=== PATIENT | male | born 1960 | race Caucasian/White ===

== ENCOUNTER → 2018-08-26 16:03 | Outpatient (CLI) | payer MEDICARE, SELFPAY ==
[2018-08-26 17:18] LABS: Amphetamine Urine VISTA NEGATIVE (<1000 ng/mL); Barbiturate Urine VISTA NEGATIVE (< 200 ng/mL); Benzodiazepine Urine VISTA NEGATIVE (< 200 ng/mL); Cocaine Urine VISTA NEGATIVE (< 300 ng/mL); Ecstacy Urine VISTA NEGATIVE (< 500 ng/mL); Methadone Urine VISTA NEGATIVE (< 300 ng/mL); PCP Urine VISTA NEGATIVE (< 25 ng/mL); THC Urine VISTA NEGATIVE (< 50 ng/mL); Vista UDS pH Range 6
--- OUTSIDE RECORDS SUMMARY | 2018-11-28 08:56 | XMS RPT_ITS ---
:1960 Author Organization OHIP Care Team Providers Name Role Phone NANETTE BUSTILLO Attending Unavailable NANETTE BUSTILLO Attending Unavailable NANETTE BUSTILLO Referring Unavailable SANDI MORALESULAM NABI Attending Unavailable SHERLY VEGA Referring Unavailable MONSERRAT SILVEIRA Attending Unavailable PROVIDER, UNKNOWN Referring Unavailable No, PCP Primary Care Unavailable Collin Carroll Attending Unavailable PROVIDER, UNKNOWN Referring Unavailable No, PCP Primary Care Unavailable Emmanuel Benedict Attending Unavailable Emmanuel Benedict Referring Unavailable Primay Care Physicia, No Primary Care Unavailable PROBLEMS PROBLEMS DATE TYPE CONDITION / CODE ATTENDING STATUS SOURCE 08/27/2018 Unknown F11.20 - Opioid Emmanuel Benedict Active [facility] dependence, Community uncomplicated / Hospital F11.20(ICD-10) Repository 05/30/2018 Active Encounter for JARRED MORALES Active [place] screening for NABI [facility] Main malignant neoplasm [place] of colon / Repository Z12.11(ICD-10) 05/27/2018 Admitting 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 [facility] Diagnosis myelopathy or System radiculopathy, Repository lumbar region / M47.816(ICD-10) 05/27/2018 Admitting Other specified MONSERRAT SILVEIRA Active [facility] Diagnosis postprocedural System states / Repository Z98.890(ICD-10) 01/27/2016 Active Arthrodesis status / CORY Active [place] Z98.1(ICD-10) [facility] [place] Repository 04/07/2015 Active Cerebral aneurysm, CORY Active [place] nonruptured / [facility] I67.1(ICD-10) [place] Repository 04/07/2015 Active Anxiety disorder, KRUPITZER, Active Small unspecified / [facility] F41.9(ICD-10) [place] Repository 03/09/2015 Active Epilepsy, KRUPITZER, Active Small unspecified, not [facility] intractable, without [place] status epilepticus / Repository G40.909(ICD-10) 03/09/2015 Active Gastro-esophageal KRUPITZER, Active Small reflux disease [facility] without esophagitis [place] / K21.9(ICD-10) Repository 03/09/2015 Active Low back pain / KRUPITZER, Active Small M54.5(ICD-10) [facility] [place] Repository 03/09/2015 Active Other chronic pain / KRUPITZER, Active Small G89.29(ICD-10) [facility] Repository PROCEDURES PROCEDURES No Procedure Records FoundRESULTS RESULTS URINE DRUG SCREEN Collected: 08/26/2018 Status: F Source: [place] (VISTA) 4:08 PM [facility] REPOSITORY Order Comment: List of Drugs Taken or Suspected? UNK TYPE CODE TESTS RESULT OUT OF RANGE REFERENCE UNITS LAB L505.0075 TO BE Normal CONFIRMED Result Comment: CONFIRMATORY TESTING FOR ALL POSITIVE URINE DRUG SCREEN RESULTS WILL ONLY BE SENT OUT UPON PHYSICIAN ORDER. VISTA Urine Drug Screen methods provide only preliminary analytical test results. A more specific alternate chemical method must be used in order to obtain a confirmed analytical result. Gas chromatography/mass spectrometery (GC/MS) is the preferred confirmatory method. Clinical consideration and professional judgement should be applied to any drug of abuse test result, particularly when preliminary positive results are used. URINE TCA TESTING MUST BE ORDERED SEPARATELY. USE TEST MNEMONIC: [facility] LAB L505.5005 VISTA UDS PH 6 Normal LAB L505.5015 <1000 ng/mL AMPHETAMINES Normal NEGATIVE LAB L505.5025 < 200 ng/mL BARBITIURATES Normal NEGATIVE LAB L505.5035 < 200 ng/mL BENZODIAZIPINE Normal NEGATIVE LAB L505.5045 < 300 ng/mL COCAINE Normal NEGATIVE LAB L505.5055 < 500 ng/mL ECSTACY Normal NEGATIVE LAB L505.5065 < 300 ng/mL METHADONE Normal NEGATIVE LAB L505.5075 < 300 High ng/mL OPIATES POSITIVE LAB L505.5085 < 25 ng/mL PCP Normal NEGATIVE LAB L505.5095 < 50 ng/mL THC Normal NEGATIVE Performed By: #### L505.5000 #### Laboratory [address] [place], [address] MISCELLANEOUS LAB Collected: 08/26/2018 Status: F Source: [place] PROCEDURE 4:08 PM [facility] REPOSITORY Order Comment: Test(s) Ordered: [id number] URINE TOX TYPE CODE TESTS RESULT OUT OF RANGE REFERENCE UNITS LAB L801.[address] [facility] LAB TEST Result Comment: TEST RESULT UNITS REF INTERVAL [id number] 6+Oxycodone-Bund . Amphetamines, Urine Negative ng/mL Gbpeso=4627 Amphetamine test includes Amphetamine and Methamphetamine. Barbiturate Negative ng/mL Blzzvh=525 Benzodiazepines Negative ng/mL Iiapww=675 Cannabinoid Negative Cutoff=20 Cocaine (Metabolite) Negative ng/mL Hacutu=080 Opiates Positive ng/mL Skbrpl=276 Opiate test includes Codeine, Morphine, Hydromorphone, Hydrocodone. Please Note: Confirmation performed by Mass Spectrometry Codeine Negative Fdqnnv=254 Morphine Negative Jpgugn=368 Hydromorphone Negative Wudpte=287 Hydrocodone Positive Hydrocodone Confirm 630 ng/mL Ofvwmt=489 Oxycodone/Oxymorphone, Urine Negative ng/mL Ygambu=066 Test includes Oxycodone and Oxymorphone TESTING PERFORMED AT [facility]. ORIGINAL REPORT ON FILE IN LAB CONTAINS ADDITIONAL TEST SITE INFORMATION. Performed By: #### L801.1541 #### Laboratory [address] [place], [address] HISTORY PHYSICAL Observed: 05/30/2018 Status: COMPLETED Source: [place] 10:49 AM [facility] REPOSITORY HNO ID: [id number] Author: Jarred Morales Service: (none) Author Type: Physician Type: HANDP Filed: 05/30/2018 11:14 AM Note Text: HISTORY AND PHYSICAL Nandini Dao, 57 year old male Current history and physical on file: No Is a new History and Physical required for today's visit? Yes Indication for procedure: Screening PROCEDURE(S) SCHEDULED FOR: Colonoscopy with or without biopsies and with or without removal of polyps or lesions, dilation (any means), treatment of bleeding (any means), based on clinical findings. BASELINE BEHAVIOR: Calm BASELINE ORIENTATION: A AND O x3 All medications and allergies reviewed: Yes Skin Assessment: Warm dry muscus membranes pink Airway/Respiratory Assessment: Airway: visualization of the uvula- Yes Mouth: opening greater than 2 fingerbreadths- Yes Neck: full range of motion- Yes Breath sounds clear/equal- Yes Cardiac Assessment: Regular rate and rhythm without murmur Abdominal Assessment: Abdomen soft, non-tender, no masses or organomegaly. Sedation Plan: MAC Additional Comments: None Jarred Morales MD CR SPINE LUMBOSACRAL 4+ Observed: 05/28/2018 Status: F Source: [employer] 9:56 AM SYSTEM REPOSITORY Patient Name: NANDINI DAO Diagnostic Radiology Exam Date/Time 05/27/2018 12:20:00 EDT Exam CR Spine Lumbosacral 4+ Views Ordering Physician MD RAOUL, MONSERRAT Accession Number [id number] CPT4 Codes 89583 () Reason For Exam other interverebral disc degeneration lumbar region Report LUMBAR SPINE: CLINICAL INDICATION: Intervertebral disc degeneration. TECHNIQUE: AP, lateral, oblique, and coned-down L5-S1. COMPARISON: None. FINDINGS: There are postsurgical changes from L2 to L5 with an intervertebral body graft from L3 to L4. There is left lateral fusion hardware with screws in the L2 and L5 vertebral bodies. No evidence of periprosthetic lucency to suggest loosening. No fracture of the hardware. There are junctional degenerative changes including intervertebral disc space narrowing and marginal endplate osteophytosis at L5-S1. Facet arthropathy at L5-S1. The sacroiliac joints are grossly intact without evidence of erosion or widening. Normal bone mineral density. IMPRESSION: 1.\X09\Postsurgical changes from L2 to L5 without evidence of fracture or loosening by radiograph. 2.\X09\Junctional degenerative changes at L5-S1 including intervertebral disc space narrowing, facet arthropathy, and marginal endplate osteophytosis. Report Dictated on Final Dictating Physician: MD GAUTAM JASON Signed Date and Time: 05/28/2018 9:59 am Signed by: MD GAUTAM JASON Transcribed Date and Time: 05/28/2018 10:00 CNCO Observed: 04/30/2018 Status: COMPLETED Source: [place] 12:00 AM [facility] REPOSITORY Letter Text Nanette Bustillo MD [facility] [address] [place] [address] Nandini Dao April 30, 2018 Nandini Dao [id number] [id number] Dear Mr. Dao, It was noted that you did not keep your scheduled appointment on 04/30/18. It is important to contact the office in advance if you are unable to keep your appointment so that it is available for other patients. Your medical care is important to us. Please call our office to reschedule an appointment. Sincerely, Nanette Bustillo MD CNCO Observed: 04/25/2018 Status: COMPLETED Source: [place] 12:00 AM [facility] REPOSITORY Letter Text COLONOSCOPY-GOLYTELY NO SOLID FOOD THE DAY BEFORE THIS EXAM Appointment Date: 05/30/18 at 10:00 AM Facility: [facility]- [address] [place] [address] Arrive At: 9:15 AM Special Instructions: N/A You must have a responsible adult to drive you home and assist you at home while you finish recovering from your sedation. Please bring only one person with you. 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 Arrive 30-45 minutes before your procedure time. Purchase at the Pharmacy: Fill prescription for Golytely and purchase 4 Dulcolax tablets. THE DAY BEFORE YOUR EXAM: 1. FOLLOW A CLEAR LIQUID DIET ALL DAY. 2. At 1:00PM, take 4 Dulcolax tablets. 3. At 5:00PM, start drinking solution. Drink a total of eight 8 oz glasses, one every 15-20 minutes. Please put the rest of the solution in the refrigerator for tomorrow morning. THE DAY OF YOUR EXAM 1. At 6:00 AM (four hours before your procedure) : drink one 8 oz glass every 15-20 minutes. Drink a total of four 8 oz glasses. Discard the remainder of the solution. 2. DO NOT DRINK ANYTHING ELSE AFTER THIS STEP IS COMPLETED. Nothing by mouth including clear liquids, food, gum and hard candy. 5 DAYS BEFORE EXAM STOP TAKING ASPIRIN OR ASPIRIN CONTAINING PRODUCTS, VITAMIN E AND IRON, BLOOD THINNERS SUCH COUMADIN, PLAVIX, AGGRENOX. DIABETICS ONLY Take only 1/2 of your daily dose of insulin or tablets the day before your exam. Do not take any more of your diabetic medications until the procedure is over and you have resumed eating again. Drink regular liquids, not diabetic and monitor your sugar throughout the day you are on clear liquids. If your sugar gets too low, drink some apple juice. It is very important that you drink all of the solution that we tell you to drink, if you do not complete the prep, your procedure may be cancelled. Any questions, please call our office at [phone] Ext [phone] or [phone]. TOXICOLOGY SCREEN,UR Collected: 03/28/2018 Status: F Source: [place] 11:00 AM [facility] REPOSITORY TYPE CODE TESTS RESULT OUT OF REFERENCE UNITS RANGE LAB UPCP2 Negative Negative Phencyclidin e, Urine Result Comment: Cutoff threshold at 25 ng/mL. LAB UBENZ2 Negative Benzodiazepines, Ur Abnormal Preliminary Alert positive. Result Comment: Cutoff threshold at 200 ng/mL. LAB UCOC2 Negative Cocaine, Negative Urine Result Comment: Cutoff threshold at 300 ng/mL. LAB UAMPH2 Negative Amphetamines, Urine Negative Result Comment: Cutoff threshold at 1000 ng/mL. LAB UTHC2 Negative Cannabinoids, Urine Negative Result Comment: Cutoff threshold at 50 ng/mL. LAB UOPI2 Negative Abnormal Preliminary Alert Opiates, Urine positive. Result Comment: Cutoff threshold at 300 ng/mL. LAB UBARB2 Negative Barbiturates, Urine Negative Result Comment: Cutoff threshold at 200 ng/mL. LAB UOXYC Negative Oxycodone, Urine Negative Result Comment: Cutoff threshold at 100 ng/mL. Comment: Immunoassay screen only. Cross reactivity with other substances can occur with immunoassay screening. Detection of any drug(s) in this urine toxicology panel is presumptive only. These tests are for med ical purposes only and should not be used for compliance monitoring, legal, or forensic use. Samples should be within normal physiological conditions (e.g. pH). This assay does not include adulteration/specimen validity testing. In clinical settings, confirmatory testing is at the practitioner's discretion [1]. If clinically indicated, confirmation by high specificity, quantitative methodology, which includes adulteration/spec imen validity testing, may be requested on the same specimen through Client Services ([phone]) if contacted within 48 hours of initial testing. [1]Substance Abuse and Mental Health Services Administration (2012). Clinical Drug Testing in Primary Care Technical Assistance Publication Series 32. Department of Health and Human Services, [place], p.10. Performed By: #### UTOX2 #### [facility] [address] [facility] [phone] #### UQNTPP #### [facility] [address] [address] QUANT PAIN PANEL, Collected: 03/28/2018 Status: F Source: [place] UR 11:00 AM [facility] REPOSITORY TYPE CODE TESTS RESULT OUT OF REFERENCE UNITS RANGE LAB UQCANN <16 ng/mL <16 Cannabinoid, Urine Result Comment: Tetrahydrocannabinol carboxylic acid (THCA) is a metabolite of tawat-1-rlxluacdyzxiktizpuuh which is the main active component of marijuana. LAB UQBNZL <24 ng/mL Benzoylecognine, Ur High 217 Result Comment: Benzoylecognine is a metabolite of cocaine. LAB UQACMR <5 ng/mL 6-Acetylmorphine, Ur <5 Result Comment: 6-GISSEL (6-monoacetylmorphine, also known as 6-acetylmorphine) is a unique metabolite of heroin. Presence of 6-GISSEL indicates use of heroin. 6-GISSEL is further metabolized to morphine and absence of 6-GISSEL does not rule out the use of heroin. LAB UQAMPH <5 ng/mL Amphetamine, High Urine 15 Result Comment: Amphetamine may arise from amphetamine containing drugs (eg. Adderall and Benzedrine) or by metabolism of methamphetamine. Clobenzorex, famprofazone, fenethylline, fenproporex, and mefenorex contain amphetamine pro-drugs which can be metabolized to amphetamine. Selegiline is metabolized to both amphetamine and methamphetamine. LAB UQMAMP <8 ng/mL Methamphetamine, Ur High 112 Result Comment: Methamphetamine may arise from methamphetamine containing drugs or metabolism. Selegiline is metabolized to both methamphetamine and amphetamine. Qhui-kfh-uxxzjjh inhalers for nasal decongestion may cause positive methamphetamine results. Methamphetamine is metabolized to amphetamine. LAB UQBUPR <20 ng/mL Buprenorphine, Ur <20 LAB UQNBUP <20 ng/mL Norbuprenorphine, Ur <20 Result Comment: Norbuprenorphine is the primary active metabolite of buprenorphine. LAB UQMTHD <16 ng/mL Methadone, Urine <16 LAB UQEDDP <6 ng/mL EDDP, Urine <6 Result Comment: EDDP is a metabolite of methadone. LAB UQTRAM <25 ng/mL Tramadol, Urine <25 LAB UQDTRM <20 ng/mL Desmethyltramadol <20 ,Ur Result Comment: Desmethyltramadol is a metabolite of tramadol. LAB UQFNTL <6 ng/mL High Fentanyl, Urine 26 Result Comment: Presence of fentanyl indicates use of a fentanyl containing drug. Fentanyl is metabolized to norfentanyl. LAB UQNFTL <6 ng/mL Norfentanyl, High Urine 72 Result Comment: Norfentanyl is a metabolite of fentanyl, and its presence indicates use of a fentanyl containing drug. LAB UQCODE <11 ng/mL Codeine, Urine <11 LAB UQMORP <10 ng/mL Morphine, Urine <10 Result Comment: Morphine is a metabolite of codeine and heroin. LAB UQDCDN <5 ng/mL Dihydrocodeine, Ur High 377 Result Comment: The presence of dihydrocodeine may arise from dihydrocodeine containing drugs or from the metabolism of hydrocodone. LAB UQHCOD <8 ng/mL Hydrocodone, High Urine 1344 Result Comment: Hydrocodone may arise from hydrocodone containing drugs or by metabolism of dihydrocodeine. Hydrocodone is also a minor metabolite of codeine, and may be detected with elevated levels of codeine. Hydrocodone is metabolized to hydromorphone and dihydrocodeine. LAB UQOXYC <5 ng/mL Oxycodone, High Urine <10 Result Comment: Disregard reference range. Reference range is <10 ng/mL LAB UQHMOR <5 ng/mL Hydromorphone, Ur High 87 Result Comment: Hydromorphone may arise from hydromorphone containing drugs or by metabolism of morphine and hydrocodone. LAB UQOXYM <5 ng/mL Oxymorphone, Urine <5 Result Comment: Oxymorphone is a metabolite of oxycodone. LAB UQCREA 46.8-314.5 mg/dL 57.6 Creatinine, Urine LAB UQPH 4.5-8.0 pH, 6.6 Urine LAB UQSPGR 1.002-1.030 Specific 1.004 [place],Ur LAB UQOXID <200 mg/L <38 Oxidants, Urine LAB SVNI01 <51 mg/L 56 High NITRITES,URINE LAB SVCH01 <50 mg/L <10 CHROMATE,URINE LAB SVSQ01 QUALITY,URINE Specimen quality results within acceptable limits. LAB UQNOTE Note This test is for Medical use only. Result Comment: This test was developed and its performance characteristics determined by [facility]'s Gume Rainey [facility] [place] ([facility]). It has not been cleared or approved by the FDA. -[facility] is regulated under CLIA as qualified to perform high-complexity testing. This test is used for clinical purposes. It should not be regarded as investigational or for research. Performed By: #### UTOX2 #### [facility] [address] [place] [address] #### UQNTPP #### [place] [address] PROGRESS Observed: 01/28/2018 Status: COMPLETED Source: [place] 2:51 PM [facility] [place] REPOSITORY HNO ID: [id number] Author: Nanette Bustillo Service: (none) Author Type: Physician Type: Progress Notes Filed: 01/28/2018 2:59 PM Note Text: Nandini Dao is a 57 year old male presenting for Recheck (Pt here for 3 month f/u) He is here for follow up Mood is doing ok Takes the klonopin as needed Does the Prozac daily No seizure activity Pain is reseaonable well control with current regimen The as needed medication which does work HISTORIES: PAST MEDICAL HISTORY Diagnosis Date - Brain aneurysm 04/07/2015 anterior communicating s/p coil 08/2014 Dr. Li - Chronic back pain - Depression - GERD (gastroesophageal reflux disease) - Seizure disorder (HCC) 03/09/2015 - Subarachnoid hemorrhage (HCC) massive subarachnoid hemorrhage that left him with coma PAST SURGICAL HISTORY Procedure Laterality Date - PAST SURGICAL HISTORY OF 2011 Lumbar fusion after fracture - PAST SURGICAL HISTORY OF september 2014 brain aneurysm cath done - PAST SURGICAL HISTORY OF 2010 Bleeding ulcer repair - PAST SURGICAL HISTORY OF 07/2015 R side thoracotomy with decortication of R lung infection FAMILY HISTORY Problem Relation Age of Onset - Cancer Father lung CA, smoker - None Mother - diabetes mellitus [Other] [OTHER] - Hypertension Social History: Social History Substance Use Topics - Smoking status: Current Every Day Smoker Packs/day: 0.50 Years: 20.00 Types: Cigarettes Start date: 03/09/1995 - Smokeless tobacco: Never Used Comment: he is smoking 1/2 ppd - Alcohol use Yes Comment: he does drink 2 x per month 2-3 beers 2-3 times per month Allergies: ALLERGIES No Known Allergies Medications: fentaNYL (DURAGESIC) 25 mcg/hr Apply 1 Patch as directed every 72 hours for 30 days.Earliest Fill Date: 12/28/17 clonazePAM (KLONOPIN) 1 mg tablet Take 1 tablet by mouth twice daily as needed for up to 30 days. HYDROcodone-Acetaminophen (NORCO) 7.5-325 mg per tablet Take 1 tablet by mouth twice daily as needed for up to 30 days.Earliest Fill Date: 12/28/17 FLUoxetine HCl (PROZAC) 40 mg capsule Take 1 capsule by mouth once daily. cyclobenzaprine (FLEXERIL) 10 mg tablet Take 1 tablet by mouth twice daily as needed. omeprazole (PRILOSEC) 20 mg capsule Take 1 capsule by mouth once daily. COMPOUNDED PRESCRIPTION Liver Detox Complex REVIEW OF SYSTEMS See HPI PHYSICAL EXAMINATION: BP 139/83 Pulse 88 Temp 36.6 ?C (97.9 ?F) (Oral) Resp 16 Ht 172.7 cm (5' 8) Wt 84.4 kg (186 lb) SpO2 93% BMI 28.28 kg/m? General Appearance: Well appearing, alert, in no acute distress, well-hydrated, well nourished.. Neck: Supple, no adenopathy; thyroid symmetric, normal size, no bruits. Lungs: Lungs clear to auscultation. No wheezing, rhonchi, rales. Heart: RRR without murmur, gallop, or rubs. No ectopy. Musculoskeletal: No joint swelling, deformity, or tenderness. Psych: Appropriate mood and affect, maintains good eye contact, answers questions appropriately. ? ASSESSMENT/PLAN: 1. Chronic bilateral low back pain without sciatica - ICD9: 724.2, 338.29, ICD10: M54.5, G89.29 (primary diagnosis) 2. S/P lumbar fusion - ICD9: V45.4, ICD10: Z98.1 Continue current medical regimen Pain is fairly well controlled Allows him to remain mobile ? ? 3. Gastroesophageal reflux disease without esophagitis - ICD9: 530.81, ICD10: K21.9 Patient does not report any reflux type symptoms Does take the Prilosec regularly} ? 4. Anxiety - ICD9: 300.00, ICD10: F41.9 Mood is doing fairly well with the Prozac and the Klonopin ? ? 5. Seizure disorder (HCC) - ICD9: 345.90, ICD10: G40.909 6. Brain aneurysm - ICD9: 437.3, ICD10: I67.1 Does have history of brain aneurysm recommend making a follow-up appointment with his neurosurgeon No seizure activity at all ? Nanette Bustillo MD Preventive health: Patient will do the fecal occult blood testing kit that he was given previously CNOV Observed: 01/28/2018 Status: COMPLETED Source: [place] 2:40 PM [facility] REPOSITORY Office Visit (FAMDNA) NANDINI DAO ([id number]) 1960 Greg Date Time Provider Department 01/28/18 2:40 PM NANETTE BUSTILLO During your visit today, we recorded the following information about you: Temperature Pulse Respiration Blood pressure 97.9 degrees 88/minute 16/minute 139/83 Weight Height 84.4 kg 1.727 m Trisha Antonio MA 01/28/2018 2:59 PM Signed FECAL OCCULT BLOOD due on 2008 Nanette Bustillo MD 01/28/2018 2:59 PM Signed Nandini Dao is a 57 year old male presenting for Recheck (Pt here for 3 month f/u) He is here for follow up Mood is doing ok Takes the klonopin as needed Does the Prozac daily No seizure activity Pain is reseaonable well control with current regimen The as needed medication which does work HISTORIES: PAST MEDICAL HISTORY Diagnosis Date - Brain aneurysm 04/07/2015 anterior communicating s/p coil 08/2014 Dr. Li - Chronic back pain - Depression - GERD (gastroesophageal reflux disease) - Seizure disorder (HCC) 03/09/2015 - Subarachnoid hemorrhage (HCC) massive subarachnoid hemorrhage that left him with coma PAST SURGICAL HISTORY Procedure Laterality Date - PAST SURGICAL HISTORY OF 2011 Lumbar fusion after fracture - PAST SURGICAL HISTORY OF september 2014 brain aneurysm cath done - PAST SURGICAL HISTORY OF 2010 Bleeding ulcer repair - PAST SURGICAL HISTORY OF 07/2015 R side thoracotomy with decortication of R lung infection FAMILY HISTORY Problem Relation Age of Onset - Cancer Father lung CA, smoker - None Mother - diabetes mellitus [Other] [OTHER] - Hypertension Social History: Social History Substance Use Topics - Smoking status: Current Every Day Smoker Packs/day: 0.50 Years: 20.00 Types: Cigarettes Start date: 03/09/1995 - Smokeless tobacco: Never Used Comment: he is smoking 1/2 ppd - Alcohol use Yes Comment: he does drink 2 x per month 2-3 beers 2-3 times per month Allergies: ALLERGIES No Known Allergies Medications: fentaNYL (DURAGESIC) 25 mcg/hr Apply 1 Patch as directed every 72 hours for 30 days.Earliest Fill Date: 12/28/17 clonazePAM (KLONOPIN) 1 mg tablet Take 1 tablet by mouth twice daily as needed for up to 30 days. HYDROcodone-Acetaminophen (NORCO) 7.5-325 mg per tablet Take 1 tablet by mouth twice daily as needed for up to 30 days.Earliest Fill Date: 12/28/17 FLUoxetine HCl (PROZAC) 40 mg capsule Take 1 capsule by mouth once daily. cyclobenzaprine (FLEXERIL) 10 mg tablet Take 1 tablet by mouth twice daily as needed. omeprazole (PRILOSEC) 20 mg capsule Take 1 capsule by mouth once daily. COMPOUNDED PRESCRIPTION Liver Detox Complex REVIEW OF SYSTEMS See HPI PHYSICAL EXAMINATION: BP 139/83 Pulse 88 Temp 36.6 ?C (97.9 ?F) (Oral) Resp 16 Ht 172.7 cm (5' 8) Wt 84.4 kg (186 lb) SpO2 93% BMI 28.28 kg/m? General Appearance: Well appearing, alert, in no acute distress, well-hydrated, well nourished.. Neck: Supple, no adenopathy; thyroid symmetric, normal size, no bruits. Lungs: Lungs clear to auscultation. No wheezing, rhonchi, rales. Heart: RRR without murmur, gallop, or rubs. No ectopy. Musculoskeletal: No joint swelling, deformity, or tenderness. Psych: Appropriate mood and affect, maintains good eye contact, answers questions appropriately. ? ASSESSMENT/PLAN: 1. Chronic bilateral low back pain without sciatica - ICD9: 724.2, 338.29, ICD10: M54.5, G89.29 (primary diagnosis) 2. S/P lumbar fusion - ICD9: V45.4, ICD10: Z98.1 Continue current medical regimen Pain is fairly well controlled Allows him to remain mobile ? ? 3. Gastroesophageal reflux disease without esophagitis - ICD9: 530.81, ICD10: K21.9 Patient does not report any reflux type symptoms Does take the Prilosec regularly} ? 4. Anxiety - ICD9: 300.00, ICD10: F41.9 Mood is doing fairly well with the Prozac and the Klonopin ? ? 5. Seizure disorder (HCC) - ICD9: 345.90, ICD10: G40.909 6. Brain aneurysm - ICD9: 437.3, ICD10: I67.1 Does have history of brain aneurysm recommend making a follow- up appointment with his neurosurgeon No seizure activity at all ? Nanette Bustillo MD Preventive health: Patient will do the fecal occult blood testing kit that he was given previously Nanette Bustillo MD 01/28/2018 2:55 PM Signed Contin current medications Call for refills when needed Follow up in 3 months Do the stool test at home Referring Provider: ANNETTE BUSTILLO [[id number]] Allergies As of Date: 01/28/2018 (No Known Allergies) Date Reviewed: 01/28/2018 Reviewed by: Trisha Antonio - Fully Assessed Reason for Visit: Recheck [92] Cmt: Pt here for 3 month f/u Visit Diagnoses:Chronic low back pain with right-sided sciatica, unspecified back pain laterality [M54.41, G89.29] S/P lumbar fusion [Z98.1] Anxiety [F41.9] Gastroesophageal reflux disease without esophagitis [K21.9] Seizure disorder (HCC) [G40.909] Order(s):fentaNYL (DURAGESIC) 25 mcg/hrApply 1 Patch as directed every 72 hours for 30 days.Disp: 10 PatchRfl: 0 clonazePAM (KLONOPIN) 1 mg tabletTake 1 tablet by mouth twice daily as needed for up to 30 days.Disp: 60 tabletRfl: 0 HYDROcodone-Acetaminophen (NORCO) 7.5-325 mg per tabletTake 1 tablet by mouth twice daily as needed for up to 30 days.Disp: 60 tabletRfl: 0 cyclobenzaprine (FLEXERIL) 10 mg tabletTake 1 tablet by mouth twice daily as needed.Disp: 60 tabletRfl: 5 Prescriptions as of 01/28/2018 Sig: FENTANYL 25 MCG/HR TRANSDERMA* Apply 1 Patch as directed ileana* CLONAZEPAM 1 MG TABLET Take 1 tablet by mouth twice * HYDROCODONE 7.5 MG-ACETAMINOP* Take 1 tablet by mouth twice * CYCLOBENZAPRINE 10 MG TABLET Take 1 tablet by mouth twice * FLUOXETINE 40 MG CAPSULE Take 1 capsule by mouth once * OMEPRAZOLE 20 MG CAPSULE,LILIBETH* Take 1 capsule by mouth once * COMPOUNDED PRESCRIPTION Liver Detox Complex Problem List As Of Date 01/28/2018 Noted Resolved Chronic back pain [M54.9, G89.29] GERD (gastroesophageal reflux disease) [K21.9] Seizure disorder (HCC) [G40.909] INVALID FOR* Anxiety [F41.9] INVALID FOR* Brain aneurysm [I67.1] INVALID FOR* Hepatitis C virus infection without hepatic com*INVALID FOR* S/P lumbar fusion [Z98.1] INVALID FOR* Chronic narcotic use [F11.90] INVALID FOR* Chronically on benzodiazepine therapy [Z79.899] INVALID FOR* Other instructions from your clinician: Contin current medications Call for refills when needed Follow up in 3 months Do the stool test at home Prescriptions ordered this encounter Disp Refills Start End FENTANYL 25 MCG/HR TRANSDERMAL PATCH 10 P* 0 01/28/2018 02/27/2018 Class: Print RX Route: TRANSDERM. Sig: Apply 1 Patch as directed every 72 hours for 30 days. CLONAZEPAM 1 MG TABLET 60 t* 0 01/28/2018 02/27/2018 Class: Print RX Route: ORAL Sig: Take 1 tablet by mouth twice daily as needed for up to 30 days. HYDROCODONE 7.5 MG-ACETAMINOPHEN 325* 60 t* 0 01/28/2018 02/27/2018 Class: Print RX Route: ORAL Sig: Take 1 tablet by mouth twice daily as needed for up to 30 days. CYCLOBENZAPRINE 10 MG TABLET 60 t* 5 01/28/2018 Route: ORAL Sig: Take 1 tablet by mouth twice daily as needed. Medications Discontinued During This Encounter fentaNYL (DURAGESIC) 25 mcg/hr 10 P* 0 12/28/2017 01/28/2018 Class: Print RX Route: TRANSDERMAL Sig: Apply 1 Patch as directed every 72 hours for 30 days. Earliest Fill Date: 12/28/17 Disc: Reason for discontinue is not on file. clonazePAM (KLONOPIN) 1 mg tablet 60 t* 0 12/28/2017 01/28/2018 Class: Print RX Route: ORAL Sig: Take 1 tablet by mouth twice daily as needed for up to 30 days. Disc: Reason for discontinue is not on file. HYDROcodone-Acetaminophen (NORCO) 7.* 60 t* 0 12/28/2017 01/28/2018 Class: Print RX Route: ORAL Sig: Take 1 tablet by mouth twice daily as needed for up to 30 days. Earliest Fill Date: 12/28/17 Disc: Reason for discontinue is not on file. cyclobenzaprine (FLEXERIL) 10 mg tab* 60 t* 5 07/31/2017 01/28/2018 Route: ORAL Sig: Take 1 tablet by mouth twice daily as needed. Disc: Reason for discontinue is not on file. Disposition: Return in about 3 months (around 04/30/2018). Follow-up and Disposition History Recorded Encounter Status:Closed by NANETTE BUSTILLO MD on 01/28/18 PROGRESS Observed: 01/28/2018 Status: COMPLETED Source: [place] 2:33 PM [facility] [place] REPOSITORY HNO ID: [id number] Author: Trisha Antonio Service: (none) Author Type: (none) Type: Progress Notes Filed: 01/28/2018 2:59 PM Note Text: FECAL OCCULT BLOOD due on 2008 TOXICOLOGY SCREEN,UR Collected: 11/27/2017 Status: F Source: [place] 3:03 PM [facility] REPOSITORY TYPE CODE TESTS RESULT OUT OF REFERENCE UNITS RANGE LAB UPCP2 Negative Negative Phencyclidin e, Urine Result Comment: Cutoff threshold at 25 ng/mL. LAB UBENZ2 Negative Benzodiazepines, Ur Abnormal Preliminary Alert positive. Result Comment: Cutoff threshold at 200 ng/mL. LAB UCOC2 Negative Cocaine, Negative Urine Result Comment: Cutoff threshold at 300 ng/mL. LAB UAMPH2 Negative Amphetamines, Urine Negative Result Comment: Cutoff threshold at 1000 ng/mL. LAB UTHC2 Negative Cannabinoids, Urine Negative Result Comment: Cutoff threshold at 50 ng/mL. LAB UOPI2 Negative Abnormal Preliminary Alert Opiates, Urine positive. Result Comment: Cutoff threshold at 300 ng/mL. LAB UBARB2 Negative Barbiturates, Urine Negative Result Comment: Cutoff threshold at 200 ng/mL. LAB UETOH <11 mg/dL <11 Ethanol, Urine LAB UOXYC Negative Oxycodone, Negative Urine Result Comment: Cutoff threshold at 100 ng/mL. Comment: Immunoassay screen only. Cross reactivity with other substances can occur with immunoassay screening. Detection of any drug(s) in this urine toxicology panel is presumptive only. These tests are for med ical purposes only and should not be used for compliance monitoring, legal, or forensic use. In clinical settings, confirmatory testing is at the practitioner's discretion [1]. If clinically indicated, confirmation by high specificity, quantitative methodology may be requested on the same speci men through Client Services ([phone]) if contacted within 48 hours of initial testing. [1]Substance Abuse and Mental Health Services Administration (2012). Clinical Drug Testing in Primary Care Technical Assistance Publication Series 32. Department of Health and Human Services, [place], p.10. These tests were developed and their performance characteristics determined by [facility]'s [facility] [place] ([facility]). They have not been cleared or a pproved by the FDA. [facility] is regulated under CLIA as qualified to perform high complexity testing. These tests are used for clinical purposes. They should not be regarded as investigational or for research. Performed By: #### UTOX2, UQNTPP #### [facility] [address] [place] [id number] QUANT PAIN PANEL, Collected: 11/27/2017 Status: F Source: [place] UR 3:03 PM [facility] REPOSITORY TYPE CODE TESTS RESULT OUT OF REFERENCE UNITS RANGE LAB UQCANN <16 ng/mL <16 Cannabinoid, Urine Result Comment: Tetrahydrocannabinol carboxylic acid (THCA) is a metabolite of oziqo-9-cwypyibuttznnvmneyee which is the main active component of marijuana. LAB UQBNZL <24 ng/mL Benzoylecognine, Ur High 25 Result Comment: Benzoylecognine is a metabolite of cocaine. LAB UQACMR <5 ng/mL 6-Acetylmorphine, Ur <5 Result Comment: 6-GISSEL (6-monoacetylmorphine, also known as 6-acetylmorphine) is a unique metabolite of heroin. Presence of 6-GISSEL indicates use of heroin. 6-GISSEL is further metabolized to morphine and absence of 6-GISSEL does not rule out the use of heroin. LAB UQAMPH <5 ng/mL Amphetamine, Urine <5 LAB UQMAMP <8 ng/mL Methamphetamine, Ur <8 LAB UQBUPR <20 ng/mL Buprenorphine, Ur <20 LAB UQNBUP <20 ng/mL Norbuprenorphine, Ur <20 Result Comment: Norbuprenorphine is the primary active metabolite of buprenorphine. LAB UQMTHD <16 ng/mL Methadone, Urine <16 LAB UQEDDP <6 ng/mL EDDP, Urine <6 Result Comment: EDDP is a metabolite of methadone. LAB UQTRAM <25 ng/mL Tramadol, Urine <25 LAB UQDTRM <20 ng/mL Desmethyltramadol <20 ,Ur Result Comment: Desmethyltramadol is a metabolite of tramadol. LAB UQFNTL <6 ng/mL High Fentanyl, Urine 16 Result Comment: Presence of fentanyl indicates use of a fentanyl containing drug. Fentanyl is metabolized to norfentanyl. LAB UQNFTL <6 ng/mL Norfentanyl, High Urine 42 Result Comment: Norfentanyl is a metabolite of fentanyl, and its presence indicates use of a fentanyl containing drug. LAB UQCODE <11 ng/mL Codeine, Urine <11 LAB UQMORP <10 ng/mL Morphine, Urine <10 Result Comment: Morphine is a metabolite of codeine and heroin. LAB UQDCDN <5 ng/mL Dihydrocodeine, Ur High 209 Result Comment: The presence of dihydrocodeine may arise from dihydrocodeine containing drugs or from the metabolism of hydrocodone. LAB UQHCOD <8 ng/mL Hydrocodone, High Urine 546 Result Comment: Hydrocodone may arise from hydrocodone containing drugs or by metabolism of dihydrocodeine. Hydrocodone is also a minor metabolite of codeine, and may be detected with elevated levels of codeine. Hydrocodone is metabolized to hydromorphone and dihydrocodeine. LAB UQOXYC <5 ng/mL Oxycodone, Urine <5 LAB UQHMOR <5 ng/mL Hydromorphone, High Ur 46 Result Comment: Hydromorphone may arise from hydromorphone containing drugs or by metabolism of morphine and hydrocodone. LAB UQOXYM <5 ng/mL Oxymorphone, Urine <5 Result Comment: Oxymorphone is a metabolite of oxycodone. LAB UQCREA >19 mg/dL Creatinine, 20-50 Urine LAB UQPH 4-10 pH, Urine 4-10 LAB UQSPGR 1.005-1.020 Specific <1.003 Spencer,Ur LAB UQOXID Negative Oxidants, Negative Urine LAB UQSPQ Specimen Specimen Quality quality results within acceptable limits. LAB UQNOTE Note This test is for Medical use only. Result Comment: This test was developed and its performance characteristics determined by [facility]'s [facility] [place] ([facility]). It has not been cleared or approved by the FDA. -[facility] is regulated under CLIA as qualified to perform high-complexity testing. This test is used for clinical purposes. It should not be regarded as investigational or for research. 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 Per Dr. Bustillo a Urine is needed to be collected before giving scripts for tox screen and pain panel. Refer to 11/19/17 encounter. Pt states he is unable to give urine sample because he just went and that his mother was in the car and he is unable to wait. Informed pt that he is not able to be given scripts until a urine is collected. Pt refused to give urine and left the office. All 3 printed scripts were destroyed and witnessed by AUSTYN Gutierrez. Please inform Dr. Bustillo if pt comes back to office for these scripts. Consuelo Saravia Ma 11/27/2017 10:13 AM Signed Pt came into office yesterday 11-26-17 for scripts. Pt was brought back for urine specimen. Pt was in bathroom for 20 minutes with no results. Pt then left with specimen cup [facility], and came back with a urine sample. Explained to that that we could not except that sample. Pt verbalized understanding and left. Pt presents today to give urine sample. Consuelo Saravia Ma 11/27/2017 10:27 AM Signed Pt was successful at giving urine sample. Please review and advise about scripts. Nanette Bustillo MD 11/27/2017 10:40 AM Signed Prescription were printed off Patient states he did take his medication today and currently has on a fentanyl patch Will see what the results of the urine drug screen shows Scripts were given to patient TRK Nanette Bustillo MD 11/27/2017 10:40 AM Signed Addended by: NANETTE BUSTILLO MD on: 11/27/2017 10:40 AM Modules accepted: Orders Allergies As of Date: 11/20/2017 (No Known Allergies) Date Reviewed: 10/30/2017 Reviewed by: Annia Pathak MA - Fully Assessed Reason for Visit: Urine Needed [Other] Cmt: printed scripts Visit Diagnoses:Chronic low back pain with right-sided sciatica, unspecified back pain laterality [M54.41, G89.29] S/P lumbar fusion [Z98.1] Anxiety [F41.9] Order(s):fentaNYL (DURAGESIC) 25 mcg/hrApply 1 Patch as directed every 72 hours for 30 days.Disp: 10 PatchRfl: 0 HYDROcodone-Acetaminophen (NORCO) 7.5-325 mg per tabletTake 1 tablet by mouth twice daily as needed for up to 30 days.Disp: 60 tabletRfl: 0 clonazePAM (KLONOPIN) 1 mg tabletTake 1 tablet by mouth twice daily as needed for up to 30 days.Disp: 60 tabletRfl: 0 Prescriptions as of 11/20/2017 Sig: FENTANYL 25 MCG/HR TRANSDERMA* Apply 1 Patch as directed ileana* HYDROCODONE 7.5 MG-ACETAMINOP* Take 1 tablet by mouth twice * CLONAZEPAM 1 MG TABLET Take 1 tablet by mouth twice * FLUOXETINE 40 MG CAPSULE Take 1 capsule by mouth once * CYCLOBENZAPRINE 10 MG TABLET Take 1 tablet by mouth twice * OMEPRAZOLE 20 MG CAPSULE,LILIBETH* Take 1 capsule by mouth once * COMPOUNDED PRESCRIPTION Liver Detox Complex Problem List As Of Date 11/20/2017 Noted Resolved Chronic back pain [M54.9, G89.29] GERD (gastroesophageal reflux disease) [K21.9] Seizure disorder (HCC) [G40.909] INVALID FOR* Anxiety [F41.9] INVALID FOR* Brain aneurysm [I67.1] INVALID FOR* Hepatitis C virus infection without hepatic com*INVALID FOR* S/P lumbar fusion [Z98.1] INVALID FOR* Chronic narcotic use [F11.90] INVALID FOR* Chronically on benzodiazepine therapy [Z79.899] INVALID FOR* Prescriptions ordered this encounter Disp Refills Start End FENTANYL 25 MCG/HR TRANSDERMAL PATCH 10 P* 0 11/27/2017 12/27/2017 Class: Print RX Route: TRANSDERM. Sig: Apply 1 Patch as directed every 72 hours for 30 days. HYDROCODONE 7.5 MG-ACETAMINOPHEN 325* 60 t* 0 11/27/2017 12/27/2017 Class: Print RX Route: ORAL Sig: Take 1 tablet by mouth twice daily as needed for up to 30 days. CLONAZEPAM 1 MG TABLET 60 t* 0 11/27/2017 12/27/2017 Class: Print RX Route: ORAL Sig: Take 1 tablet by mouth twice daily as needed for up to 30 days. Medications Discontinued During This Encounter fentaNYL (DURAGESIC) 25 mcg/hr 10 P* 0 11/19/2017 11/27/2017 Class: Print RX Route: TRANSDERMAL Sig: Apply 1 Patch as directed every 72 hours for 30 days. Earliest Fill Date: 11/19/17 Disc: Reason for discontinue is not on file. HYDROcodone-Acetaminophen (NORCO) 7.* 60 t* 0 11/19/2017 11/27/2017 Class: Print RX Route: ORAL Sig: Take 1 tablet by mouth twice daily as needed for up to 30 days. Earliest Fill Date: 11/19/17 Disc: Reason for discontinue is not on file. clonazePAM (KLONOPIN) 1 mg tablet 60 t* 0 11/19/2017 11/27/2017 Class: Print RX Route: ORAL Sig: Take 1 tablet by mouth twice daily as needed for up to 30 days. Disc: Reason for discontinue is not on file. Encounter Status:Closed by GIOVANNI WHITTINGTON on 11/20/17 PROGRESS Observed: 10/30/2017 Status: COMPLETED Source: [place] 2:03 PM [facility] [place] REPOSITORY O ID: [id number] Author: Nanette Bustillo Service: (none) Author Type: Physician Type: Progress Notes Filed: 10/30/2017 2:54 PM Note Text: Nandini Dao is a 57 year old male presenting for Established Patient (3 month FOLLOW-UP) He is here for follow up He has been doing about the same No acute issues Pain is about the same Anxiety is about the same as well prozac seems to be doing ok No issues HISTORIES: PAST MEDICAL HISTORY Diagnosis Date - Brain aneurysm 04/07/2015 anterior communicating s/p coil 08/2014 Dr. Li - Chronic back pain - Depression - GERD (gastroesophageal reflux disease) - Seizure disorder (HCC) 03/09/2015 - Subarachnoid hemorrhage (HCC) massive subarachnoid hemorrhage that left him with coma PAST SURGICAL HISTORY Procedure Laterality Date - PAST SURGICAL HISTORY OF 2011 Lumbar fusion after fracture - PAST SURGICAL HISTORY OF september 2014 brain aneurysm cath done - PAST SURGICAL HISTORY OF 2010 Bleeding ulcer repair - PAST SURGICAL HISTORY OF 07/2015 R side thoracotomy with decortication of R lung infection FAMILY HISTORY Problem Relation Age of Onset - Cancer Father lung CA, smoker - None Mother - diabetes mellitus [Other] [OTHER] - Hypertension Social History: Social History Substance Use Topics - Smoking status: Current Every Day Smoker Packs/day: 0.50 Years: 20.00 Types: Cigarettes Start date: 03/09/1995 - Smokeless tobacco: Never Used Comment: he is smoking 1/2 ppd - Alcohol use Yes Comment: he does drink 2 x per month 2-3 beers 2-3 times per month Allergies: ALLERGIES No Known Allergies Medications: HYDROcodone-Acetaminophen (NORCO) 7.5-325 mg per tablet Take 1 tablet by mouth twice daily as needed for up to 30 days.Earliest Fill Date: 10/26/17 fentaNYL (DURAGESIC) 25 mcg/hr Apply 1 Patch as directed every 72 hours for 30 days.Earliest Fill Date: 10/26/17 clonazePAM (KLONOPIN) 1 mg tablet Take 1 tablet by mouth twice daily as needed for up to 30 days. FLUoxetine HCl (PROZAC) 40 mg capsule Take 1 capsule by mouth once daily. cyclobenzaprine (FLEXERIL) 10 mg tablet Take 1 tablet by mouth twice daily as needed. omeprazole (PRILOSEC) 20 mg capsule Take 1 capsule by mouth once daily. COMPOUNDED PRESCRIPTION Liver Detox Complex REVIEW OF SYSTEMS See HPI PHYSICAL EXAMINATION: BP 130/82 Pulse 109 Temp 36.7 ?C (98.1 ?F) (Oral) Resp 16 Wt 80.1 kg (176 lb 8 oz) SpO2 96% BMI 26.84 kg/m2 General Appearance: Well appearing, alert, in no acute distress, well-hydrated, well nourished.. Lungs: Lungs clear to auscultation. No wheezing, rhonchi, rales. Heart: RRR without murmur, gallop, or rubs. ?No ectopy. Extremities: No deformities, edema, skin discoloration, clubbing or cyanosis. Good capillary refill. . Peripheral Pulses: Normal. Psych: ?Appropriate mood and affect ASSESSMENT/PLAN: 1. Chronic bilateral low back pain without sciatica - ICD9: 724.2, 338.29, ICD10: M54.5, G89.29 (primary diagnosis) 2. S/P lumbar fusion - ICD9: V45.4, ICD10: Z98.1 Continue current medical regimen Pain is fairly well controlled Allows him to remain mobile 3. Gastroesophageal reflux disease without esophagitis - ICD9: 530.81, ICD10: K21.9 Patient does not report any reflux type symptoms Does take the Prilosec regularly} 4. Anxiety - ICD9: 300.00, ICD10: F41.9 Mood is doing fairly well with the Prozac and the Klonopin 5. Seizure disorder (HCC) - ICD9: 345.90, ICD10: G40.909 6. Brain aneurysm - ICD9: 437.3, ICD10: I67.1 Does have history of brain aneurysm recommend making a follow-up appointment with his neurosurgeon No seizure activity at all Nanette Bustillo MD Preventive health: Patient has yet to do the fecal occult blood test and he will be given another kit today Recommend doing this as soon as possible I also did review his tox screen as well as urine drug screen Was positive for metabolites of cocaine as well as methamphetamine Was negative for the fentanyl Counseled that we will need to test him regularly and if he has any other discrepancies, I will not longer be able to prescribe controlled medications for him Patient denied any illicit drug use 10/02/2017 12:03 PM - Interface, Results In Component Results Component Value Range AND Units Status Performing Lab Cannabinoid Quant, Urine <16 <16 ng/mL Final CCM Comment: Tetrahydrocannabinol carboxylic acid (THCA) is a metabolite of yrbim-4-knkqqonfaorzkoqmiiyt which is the main active component of marijuana. Benzoylecognine Quant, Urine 166 (H) <24 ng/mL Final CCM Comment: Benzoylecognine is a metabolite of cocaine. 6-Acetylmorphine Quant, Urine <5 <5 ng/mL Final CCM Comment: 6-GISSEL (6-monoacetylmorphine, also known as 6-acetylmorphine) is a unique metabolite of heroin. Presence of 6-GISSEL indicates use of heroin. 6-GISSEL is further metabolized to morphine and absence of 6-GISSEL does not rule out the use ?of heroin. Amphetamine Quant, Urine <5 <5 ng/mL Final CCM Methamphetamine Quant, Urine 27 (H) <8 ng/mL Final CCM Comment: Methamphetamine may arise from methamphetamine containing drugs or metabolism. ?Selegiline is metabolized to both methamphetamine and amphetamine. Rqml-kdc-vddkxpc inhalers for nasal decongestion may cause positive methamphetamine results. Methamphetamine is metabolized to amphetamine. Buprenorphine Quant, Urine <20 <20 ng/mL Final CCM Norbuprenorphine Quant, Urine <20 <20 ng/mL Final CCM Comment: Norbuprenorphine is the primary active metabolite of buprenorphine. Methadone Quant, Urine <16 <16 ng/mL Final CCM EDDP Quant, Urine <6 <6 ng/mL Final CCM Comment: EDDP is a metabolite of methadone. Tramadol Quant, Urine <25 <25 ng/mL Final CCM Desmethyltramadol Quant, Urine <20 <20 ng/mL Final CCM Comment: Desmethyltramadol is a metabolite of tramadol. Fentanyl Quant, Urine <6 <6 ng/mL Final CCM Norfentanyl Quant, Urine 11 (H) <6 ng/mL Final CCM Comment: Norfentanyl is a metabolite of fentanyl, and its presence indicates use of a fentanyl containing drug. Codeine Quant, Urine <11 <11 ng/mL Final CCM Morphine Quant, Urine <10 <10 ng/mL Final CCM Comment: Morphine is a metabolite of codeine and heroin. Dihydrocodeine Quant, Urine 335 (H) <5 ng/mL Final CCM Comment: The presence of dihydrocodeine may arise from dihydrocodeine containing drugs or from the metabolism of hydrocodone. ? Hydrocodone Quant, Urine 1606 (H) <8 ng/mL Final CCM Comment: Hydrocodone may arise from hydrocodone containing drugs or by metabolism of dihydrocodeine. Hydrocodone is also a minor metabolite of codeine, and may be detected with elevated levels of codeine. Hydrocodone is metabolized to hydromorphone and dihydrocodeine. Oxycodone Quant, Urine <5 <5 ng/mL Final CCM Hydromorphone Quant, Urine 65 (H) <5 ng/mL Final CCM Comment: Hydromorphone may arise from hydromorphone containing drugs or by metabolism of morphine and hydrocodone. ? Oxymorphone Quant, Urine <5 <5 ng/mL Final CCM Comment: Oxymorphone is a metabolite of oxycodone. Creatinine,Ur Pain Umana >50 >19 mg/dL Final CCM Urine pH, Pain Umana 4-10 4 - 10 Final CCM Specific Spencer,Ur Pain Umana 1.005-1.020 1.005 - 1.020 Final CCM Oxidants,Ur Negative Negative Final CCM Specimen Quality, Ur Pain Umana Final CCM Specimen quality results within acceptable limits. Note,Ur Pain Umana Final CCM This test is for Medical use only. Comment: This test was developed and its performance characteristics determined by [facility]'s [facility] [place] ([facility] It has not been cleared or approved by the FDA. -[facility] is regulated under CLIA as qualified to perform high-complexity testing. This test is used for clinical purposes. It should not be regarded as investigational or for research. 09/27/2017 ?4:48 PM - Interface, Results In Component Results Component Value Range AND Units Status Performing Lab Phencyclidine Negative Negative Final MED LAB Comment: Cutoff threshold at 25 ng/mL. Detection of any drug(s) is presumptive only. For confirmation by alternative methods contact the Laboratory within 5 days. For medical purposes only. Documented cross-reactivities (false positives) on file in Laboratory. Benzodiazepines Urine Positive (A) Negative Final MED LAB Comment: Cutoff threshold at 200 ng/mL. Detection of any drug(s) is presumptive only. For confirmation by alternative methods contact the Laboratory within 5 days. For medical purposes only. Documented cross-reactivities (false positives) on file in Laboratory. Cocaine Urine Negative Negative Final MED LAB Comment: Cutoff threshold at 300 ng/mL. Detection of any drug(s) is presumptive only. For confirmation by alternative methods contact the Laboratory within 5 days. For medical purposes only. Documented cross-reactivities (false positives) on file in Laboratory. Amphetamines Negative Negative Final MED LAB Comment: Cutoff threshold at 1000 ng/mL. Detection of any drug(s) is presumptive only. For confirmation by alternative methods contact the Laboratory within 5 days. For medical purposes only. Documented cross-reactivities (false positives) on file in Laboratory. THC Negative Negative Final MED LAB Comment: Cutoff threshold at 50 ng/mL. Detection of any drug(s) is presumptive only. For confirmation by alternative methods contact the Laboratory within 5 days. For medical purposes only. Documented cross-reactivities (false positives) on file in Laboratory. Opiates Positive (A) Negative Final MED LAB Comment: Cutoff threshold at 300 ng/mL. Detection of any drug(s) is presumptive only. For confirmation by alternative methods contact the Laboratory within 5 days. For medical purposes only. Documented cross-reactivities (false positives) on file in Laboratory. Barbiturates Negative Negative Final MED LAB Comment: Cutoff threshold at 200 ng/mL. Detection of any drug(s) is presumptive only. For confirmation by alternative methods contact the Laboratory within 5 days. For medical purposes only. Documented cross-reactivities (false positives) on file in Laboratory. Oxycodone, Urine Negative Negative Final MED LAB Comment: Cutoff threshold at 100 ng/mL. Detection of any drug(s) is presumptive only. For confirmation by alternative methods contact the Laboratory within 5 days. For medical purposes only. Documented cross-reactivities (false positives) on file in Laboratory. ALLERGIES ALLERGIES DATE TYPE / CODE NAME / CODE REACTION SEVERITY SOURCE 09/30/2016 Drug No Known Unknown [facility] Allergy/416 Allergies/K09930 Hospital 069759(SNOM 0388(RXNORM) Repository ED CT) Drug NO KNOWN [facility] Class/92217 ALLERGIES [place] [facility]3(SNOMED Repository CT) ENCOUNTERS ENCOUNTERS ADMIT/DISCHARGE ACCOUNT NUMBER ADMITTING ENCOUNTER LOCATION SOURCE CLASS 08/26/2018 [id number] [facility] ding:LAB Repository 05/30/2018/05/30/20 [id number] Ambulatory [address] Repository 05/27/2018 [id number] Ambulatory [facility] Repository 05/27/2018 [id number] Emergency [facility] Repository 01/28/2018/01/30/20 [id number] Ambulatory [address] Repository 10/30/2017/10/31/[id number] Repository PAYERS PAYERS ENCOUNTER GUARANTOR PAYER SUBSCRIBER SOURCE 08/26/2018 NANDINI Adams Primary NANDINI [id number] Insurance:HUMANA BONDDOB: [facility] MEDICARE [employer] [id number] Number: Repository [place] [address]Pck: [id number] Date:[id number] [address] () [address] [place], [place] [id number]: 08/26/2018 Secondary NOT GIVENUNK Joseline Insurance:SELF PAY [facility] Number: Effective Repository Date:2018-08-26 05/27/2018 Nandini Adams Primary [facility] BondDOB: Insurance:[employer] BondDOB: System y Number: Effective [id number] Repository [facility] Date: [place], [place] [address]Pvd: () 05/27/2018 [facility] Insurance:[employer] BondDOB: System y Number: Effective [id number] Repository [facility] Date: [place], [place] [address]Qka: ()
== END ==
PROVIDERS: Referring Provider Anesthesiology Pain Medicine; Visit Provider Anesthesiology Pain Medicine
DX: F11.20 Opioid dependence, uncomplicated (principal)
CPT/HCPCS: 80307